=== PATIENT | female | born 1985 | race Caucasian/White ===

== ENCOUNTER → 2022-07-01 | Outpatient (CLI) | payer OTHER ==
--- NOTE | 2022-07-02 04:13 | MR ---
EXAMINATION TYPE: MR knee LT wo con DATE OF EXAM: 07/01/2022 COMPARISON: None HISTORY: Left knee pain. Multiplanar multi echo imaging of the left knee performed without contrast. The collateral ligaments are intact. The anterior and posterior cruciate ligaments are intact. The pa tella is intact. The joint spaces are fairly normal. The medial and lateral menisci appear intact. There is minimal subcutaneous edema anterior to the patella. No evidence of a fracture. No evidence o f any significant knee joint effusion. There is 1.5 cm area of septated cystic fluid collection infer ior to the posterior lateral tibial condyle that could be synovial cyst from the tibia fibula joint. IMPRESSION: No evidence of ligamentous or meniscal tear. Minimal subcutaneous edema anterior to the patella. Smal l synovial cyst of the tibia fibular joint.
== END | disposition home or self-care (01) ==
LOC: RADMRIMAIN 19:52
PROVIDERS: ATTEND Orthopaedic Surgery
DX: M25.562 Pain in left knee (principal)